=== PATIENT | male | born 1960 | race Hispanic/Latino ===

== ENCOUNTER 2023-07-26 19:10 | Emergency (ER) | payer OTHER, MEDICARE ==
[~2023-07-26] VITALS: Ht 172.7 cm; Wt 65.8 kg
[2023-07-26] MEDS: KETOROLAC 15MG/ML VIAL (15MG/ML) IV ONE (19:53)
[2023-07-26] MEDS: 0.9%NACL 1000ML 1,000 ML IV ONE (19:54)
[2023-07-26 20:05] LABS: BASOPHILS # (AUTO) 0.07 K/uL (0.00-0.20); BASOPHILS % (AUTO) 0.4 % (0.0-5.0); EOSINOPHILS % (AUTO) 0.6 % (0.0-8.0); LYMPHOCYTES # (AUTO) 1.1 K/uL (1.0-4.8); LYMPHOCYTES % (AUTO) 6.3 % (21.0-51.0); MEAN CORPUSCULAR HEMOGLOBIN 30.4 pg (27.0-33.0); MEAN CORPUSCULAR HGB CONC 33.8 g/dL (32.0-36.0); MEAN CORPUSCULAR VOLUME 89.9 fL (79-99); MONOCYTES # (AUTO) 1.2 K/uL (0.1-1.0); MONOCYTES % (AUTO) 6.4 % (3.0-13.0); NEUTROPHILS # (AUTO) 15.4 K/uL (1.8-7.7); NEUTROPHILS % (AUTO) 85.2 % (40.0-77.0); PLATELET COUNT (AUTO) 301 K/uL (130-400); RED BLOOD CELL COUNT(AUTO) 4.67 MIL/uL (4.50-6.20); RED CELL DISTRIBUTION WIDTH 12.7 % (11.0-15.5)
[2023-07-26 20:21] LABS: CREATININE 1.1 mg/dL (0.5-1.3); POTASSIUM 4.4 mmol/L (3.5-5.1)
[2023-07-26 20:26] VITALS: BP 100/64; PULSE 88; RESP 18; O2SAT 98
[2023-07-26 20:26] LABS: ALBUMIN 2.5 g/dL (3.5-5.0); BILIRUBIN,TOTAL 0.9 mg/dL (0.2-1.0); TOTAL PROTEIN, SERUM 7.4 g/dL (6.0-8.3)
[2023-07-26 21:09] LABS: ADD UA MICROSCOPIC YES; APPEARANCE,URINE CLEAR (CLEAR); BILIRUBIN,URINE NEGATIVE (NEGATIVE); COLOR,URINE LIGHT-YELLOW (YELLOW); GLUCOSE, URINE (UA) >=1000 mg/dL (NEGATIVE); KETONES,URINE 40 mg/dL (NEGATIVE); LEUKOCYTE ESTERASE ,URINE NEGATIVE Leu/uL (NEGATIVE); NITRATE,URINE NEGATIVE (NEGATIVE); OCCULT BLOOD,URINE NEGATIVE (NEGATIVE); PH,URINE 5.5 (5.0-8.0); PROTEIN,URINE NEGATIVE (NEGATIVE); UROBILINOGEN,URINE 0.2 mg/dL (0.2-1.0)
[2023-07-26 21:10] LABS: MUCUS,URINE RARE LPF (None Seen); RBC,URINE 0-1 /HPF (0-1); SQUAMOUS EPITHELIAL CELL,UR RARE /HPF (0-2); WBC,URINE 0-1 /HPF (0-1)
[2023-07-26] MEDS ORDERED: GLIP5TAB15 PO (22:25)
[2023-07-26] MEDS ORDERED: CEPH500B PO (22:25)
[2023-07-26] MEDS ORDERED: GABA100C PO (22:25)
[2023-07-26] MEDS ORDERED: MIRT-147 PO (22:25)
[2023-07-26] MEDS: 0.9%NACL 1000ML 1,500 ML IV ONE (22:43)
[2023-07-26] MEDS ORDERED: IOHEXOL-350 75 ML VIAL IV ONE (23:28)
== END 2023-07-26 23:06 | disposition home or self-care (01) ==
LOC: EDH 19:10
DX: E11.65 Type 2 diabetes mellitus with hyperglycemia (principal); L03.312 Cellulitis of back [any part except buttock and flank]; B02.9 Zoster without complications; E46 Unspecified protein-calorie malnutrition; Z68.22 Body mass index [BMI] 22.0-22.9, adult; Z79.899 Other long term (current) drug therapy; Z79.84 Long term (current) use of oral hypoglycemic drugs; Z91.199 Patient's noncompliance with other medical treatment and regimen due to unspecified reason
CPT/HCPCS: 99285; 70450; 96374; 96361; 84484; 80053; 83690; 85025; 87040 ×2; 83605; 81001; 36415; 71260; 74177; 93005; J7030 ×2; J1885; Q9967